=== PATIENT | female | born 1970 | race Caucasian/White ===

== ENCOUNTER → 2019-05-04 12:04 | Outpatient (CLI) | payer OTHER, SELFPAY ==
--- NOTE | 2019-05-04 | DI.RAD.S_ITS ---
PROCEDURE: FL SHOULDER INJECTION MR/CT LT INDICATIONS: PAIN IN LEFT SHOULDER TECHNIQUE: The indications, alternatives, benefits, risks, and complications of the procedure were explained to the patient. Written informed consent was obtained and placed in the chart. The shoulder was examined fluoroscopically and a site for needle placement chosen for entry into the glenohumeral joint from an anterior approach. The skin was prepped and draped in a sterile fashion, and 1% lidocaine infiltrated from skin down to joint capsule. A spinal needle was inserted into the glenohumeral joint, and a small amount of iodinated contrast media injected to confirm intra-articular placement of the needle tip. This was followed by approximately 12 mL dilute solution of a gadolinium containing MR contrast agent. The needle was removed and a dressing was applied. The patient was given postprocedural instructions and sent to the MR suite for MR imaging. FINDINGS: A single fluoroscopic spot image demonstrates intra-articular location of injected iodinated contrast. IMPRESSION: Successful fluoroscopically guided administration of dilute Gadolinium solution into the shoulder joint for MR arthrogram. Dictated by: Callum Boo M.D. on 05/04/2019 at 17:17 Approved by: Callum Boo M.D. on 05/04/2019 at 17:17
--- NOTE | 2019-05-04 | DI.MRI.S_ITS ---
PROCEDURE: MR SHOULDER LT W CON INDICATIONS: PAIN IN LEFT SHOULDER TECHNIQUE: After the administration of 12 mL of dilute intra-articular Gadolinium contrast, oblique coronal T1 and T2 spin echo with fat saturation, oblique sagittal T1 spin echo with and without fat saturation, oblique sagittal T2 fast spin echo with fat saturation, axial T1 spin echo with fat saturation through the shoulder. COMPARISON: None. FINDINGS: Image quality: Excellent. Rotator cuff: Supraspinatus tendinopathy at the footprint, where there is sub-5 mm partial thickness bursal and articular sided tear, for example image 7/8. No large or retracted defect is seen. Infraspinatus and teres minor tendons appear intact. Subscapularis tendon appears intact. No atrophy of the rotator cuff muscles. Bones and bursae: No bone marrow contusions or fractures. Moderate acromioclavicular joint degeneration. Slight lateral downsloping appearance of the acromion Acromion demonstrates conventional anatomy, without an os acromiale. Moderate subacromial-subdeltoid bursitis, without T1 shortening. Capsule and soft tissues: Labrum: Grossly intact. Long head of the biceps tendon intact. The rotator interval appears normal, without fibrosis. Coracohumeral ligament intact. IMPRESSION: Supraspinatus tendinopathy at the footprint, with small partial-thickness bursal and articular sided tear. Moderate subacromial-subdeltoid bursitis Slight lateral downsloping appearance of the acromion Dictated by: Callum Boo M.D. on 05/04/2019 at 14:12 Approved by: Callum Boo M.D. on 05/04/2019 at 14:53
== END ==
PROVIDERS: PCP Family Medicine; Referring Provider Family Medicine; Visit Provider Family Medicine
DX: M25.512 Pain in left shoulder (principal); M75.112 Incomplete rotator cuff tear or rupture of left shoulder, not specified as traumatic; M75.52 Bursitis of left shoulder
CPT/HCPCS: 23350; 73222; 77002

== ENCOUNTER → 2022-01-31 17:29 | Outpatient (CLI) | payer OTHER, SELFPAY ==
--- NOTE | 2022-01-31 17:34 | DI.MRI.S_ITS ---
PROCEDURE: MR PELIS WO/W CON INDICATIONS: Malignant neoplasm of vulva TECHNIQUE: Noncontrast coronal T1 spin echo and STIR, sagittal T1 spin echo with fat saturation and STIR, axial T1 spin echo and T2 fast spin echo with fat saturation. After the administration of contrast, axial/sagittal/coronal T1 spin echo with fat saturation through the pelvis . COMPARISON: None. FINDINGS: Image quality: Excellent. Bones: The visualized bone marrow demonstrates normal signal on all sequences. The overlying cortex appears intact. No abnormal intraosseous enhancement. Soft tissues: Circumscribed cystic mass in the right labia majora measures 4.8 x 2.4 x 1.4 cm. It demonstrates T1 isointensity to muscle and mild T2 hyperintensity. It demonstrates restricted diffusion. Postcontrast imaging demonstrates the internal irregularity and enhancement of the wall and hypoenhancement of central cystic components. There is a 9 mm the right common femoral chain lymph node with similar cystic signal characteristics. The overlying skin surface appears intact. Perineum appears otherwise normal. The urethra and vaginal canal appear normal. The cervix demonstrates tunnel cluster cysts at the external cervical os. Otherwise normal cervical appearance. The uterus is vertically oriented and due to field of view, is incompletely evaluated. Ovaries were not imaged. Distal bowel loops are within normal limits. The urinary bladder wall has a normal thickness. Trace amount of probably physiologic free fluid. IMPRESSION: 1. 4.8 cm right labial mass without visible local extension. 2. Suspicious right common femoral lymph node measuring 9 mm in short axis. No other suspicious nodes are identified. Dictated by: Sarah Malik M.D. on 02/05/2022 at 16:28 Approved by: Sarah aMlik M.D. on 02/05/2022 at 16:44
== END ==
PROVIDERS: PCP Family Medicine; Referring Provider Advanced Practice Midwife; Visit Provider Advanced Practice Midwife
DX: C51.9 Malignant neoplasm of vulva, unspecified (principal)
CPT/HCPCS: 72197; A9579

== ENCOUNTER → 2023-08-02 13:10 | Outpatient (CLI) | payer OTHER, SELFPAY ==
--- NOTE | 2023-08-02 13:12 | DI.US.S_ITS ---
LIMITED ULTRASOUND OF RIGHT BREAST: 08/02/2023 CLINICAL: Follow up from addtional views. Comparison is made to exams dated: 08/02/2023 mammogram - [facility], 07/08/2023 mammogram, 07/03/2022 mammogram, and 05/18/2021 mammogram - [facility]. Color flow and real-time ultrasound of the right breast 4 o'clock region were performed. Benz scale images of the real-time examination were reviewed. There is a 0.6 cm x 0.5 cm x 0.4 cm oval complicated cyst in the right breast at 4 o'clock anterior depth 1 cm from the nipple. This oval complicated cyst is anechoic with internal echoes. This correlates with mammography findings. Color flow imaging demonstrates that there is no vascularity present. IMPRESSION: PROBABLY BENIGN The 0.6 cm complicated cyst in the right breast is probably benign. A follow-up ultrasound in 6 months is recommended to demonstrate stability. Exam findings were conveyed to the patient. This exam was interpreted at Station ID: [id number]. Electronically Signed By: Jatinder Vieira M.D. [facility] [place]/:08/02/2023 15:12:26 letter sent: Followup Recommended Ultrasound BI-RADS: 3 Probably benign
--- NOTE | 2023-08-02 13:12 | DI.US.S_ITS ---
LIMITED ULTRASOUND OF LEFT BREAST: 08/02/2023 CLINICAL: Follow up from addtional views. Comparison is made to exams dated: 08/02/2023 mammogram - [facility], 07/08/2023 mammogram, 07/03/2022 mammogram, and 05/18/2021 mammogram - [facility]. Color flow and real-time ultrasound of the left breast 4 o'clock region were performed. Benz scale images of the real-time examination were reviewed. There is a 0.6 cm x 0.6 cm x 0.3 cm oval complicated cyst in the left breast at 4 o'clock posterior depth 7 cm from the nipple. This oval complicated cyst is anechoic with internal echoes. This correlates with mammography findings. Color flow imaging demonstrates that there is no vascularity present. IMPRESSION: PROBABLY BENIGN The 0.6 cm complicated cyst in the left breast is probably benign. A follow-up ultrasound in 6 months is recommended to demonstrate stability. Exam findings were conveyed to the patient. This exam was interpreted at Station ID: [id number]. Electronically Signed By: Jatinder Vieira M.D. [facility] [place]/:08/02/2023 15:15:22 letter sent: Followup Recommended Ultrasound BI-RADS: 3 Probably benign
--- NOTE | 2023-08-02 13:12 | DI.MG.S_ITS ---
BILATERAL DIGITAL DIAGNOSTIC MAMMOGRAM 3D/2D: 08/02/2023 CLINICAL: Additional evaluation requested from prior study. Comparison is made to exams dated: 07/08/2023 mammogram, 07/03/2022 mammogram, and 05/18/2021 mammogram - [facility]. Both breasts are heterogeneously dense, which may obscure small masses (category c / 51-75% glandular tissue). There is a focal asymmetry with an obscured and circumscribed margin in the right breast at 4 o'clock anterior depth. There is an oval focal asymmetry with an obscured margin in the left breast at 4 o'clock posterior depth. No other significant masses or calcifications are seen in either breast. IMPRESSION: INCOMPLETE: NEEDS ADDITIONAL IMAGING EVALUATION The focal asymmetry in the right breast at 4 o'clock anterior depth resembles a cyst and is indeterminate. The oval focal asymmetry in the left breast at 4 o'clock posterior depth resembles a cyst and is indeterminate. A targeted ultrasound is recommended and will immediately follow. Based on the Tyrer Cuzick model (a risk assessment model) the patient's lifetime risk is 11.3% and her 10 year risk is 2.8%. According to the ACR, ACS, and NCCN guidelines, an annual breast MRI exam along with mammogram is recommended if the patient's lifetime risk is 20% or greater. This exam was interpreted at Station ID: [id number]. NOTE: For mammograms, a report in lay terms will be sent to the patient. Approximately 15% of breast malignancies will not be visualized mammographically. In the management of a palpable breast mass, a negative mammogram must not discourage biopsy of a clinically suspicious lesion. Electronically Signed By: Jatinder Vieira M.D. [facility] [place]/:08/02/2023 14:17:07 ACR BI-RADS Category 0: Incomplete [id number]
== END ==
PROVIDERS: PCP Family Medicine; Referring Provider Family Medicine; Visit Provider Family Medicine
DX: R92.8 Other abnormal and inconclusive findings on diagnostic imaging of breast (principal); N60.01 Solitary cyst of right breast; N60.02 Solitary cyst of left breast; R92.333 Mammographic heterogeneous density, bilateral breasts
CPT/HCPCS: 76642; 77066; G0279

== ENCOUNTER → 2024-02-13 09:25 | Outpatient (CLI) | payer OTHER, SELFPAY ==
--- NOTE | 2024-02-13 | DI.US.S_ITS ---
LIMITED ULTRASOUND OF RIGHT BREAST: 02/13/2024 CLINICAL: Patient returns today to evaluate a focal asymmetry in the right breast. Comparison is made to exams dated: 08/02/2023 ultrasound, 08/02/2023 mammogram - [facility], 07/08/2023 mammogram, 07/03/2022 mammogram, and 05/18/2021 mammogram - [facility]. Color flow and real-time ultrasound of the right breast 4 o'clock region were performed. There is a 0.6 cm x 0.5 cm x 0.4 cm oval complicated cyst in the right breast at 4 o'clock, 1 cm from the nipple, stable since 08/02/2023. Color flow imaging demonstrates that there is no vascularity present. IMPRESSION: PROBABLY BENIGN The 0.6 cm x 0.5 cm x 0.4 cm oval complicated cyst in the right breast is probably benign. Recommend follow-up mammogram and ultrasound in 6 months to demonstrate 1 year stability. Patient will be due for bilateral mammogram at that time. Findings and recommendations were conveyed to the patient during today's evaluation. This exam was interpreted at Station ID: [id number]. Electronically Signed By: Ann Buckley M.D., Ph.D. eb/:02/15/2024 04:56:31 letter sent: Followup Recommended ACR BI-RADS Category 3: Probably Benign
--- NOTE | 2024-02-13 09:26 | DI.US.S_ITS ---
LIMITED ULTRASOUND OF LEFT BREAST: 02/13/2024 CLINICAL: Patient returns today to evaluate a focal asymmetry in the left breast. Comparison is made to exams dated: 08/02/2023 ultrasound, 08/02/2023 mammogram - [facility], 07/08/2023 mammogram, 07/03/2022 mammogram, and 05/18/2021 mammogram - [facility]. Color flow and real-time ultrasound of the left breast 4 o'clock region were performed. There is a 0.6 cm x 0.6 cm x 0.3 cm oval complicated cyst in the left breast at 4 o'clock, 7 cm from the nipple. This oval complicated cyst is anechoic with internal echoes. Color flow imaging demonstrates that there is no vascularity present. IMPRESSION: PROBABLY BENIGN The 0.6 cm x 0.6 cm x 0.3 cm oval complicated cyst in the left breast is probably benign. Recommend follow-up mammogram and ultrasound in 6 months to demonstrate 1 year stability. Patient will be due for bilateral mammogram at that time. Findings and recommendations were conveyed to the patient during today's evaluation. This exam was interpreted at Station ID: [id number]. Electronically Signed By: Ann Buckley M.D., Ph.D. eb/:02/15/2024 05:00:55 letter sent: Followup Recommended ACR BI-RADS Category 3: Probably Benign
== END ==
PROVIDERS: PCP Family Medicine
DX: R92.8 Other abnormal and inconclusive findings on diagnostic imaging of breast (principal); N60.02 Solitary cyst of left breast; N60.01 Solitary cyst of right breast
CPT/HCPCS: 76642